=== PATIENT | male | born 1990 | race Caucasian/White ===

== ENCOUNTER → 2018-03-26 | Outpatient (CLI) | payer OTHER ==
--- NOTE | 2018-03-26 16:11 | REP ---
MAXILLOFACIAL CT WITHOUT CONTRAST: HISTORY: Chronic maxillary sinusitis. Minimal mucosal thickening is present in the maxillary, ethmoid , left frontal and left sphenoid sinuses. The remaining sinuses are clear. Mucosal thickening involves the osteomeatal units. The middle and inferior nasal turbinates are partially paradoxical. There is mild deviation of the superior nasal septum to the right. This abuts the right middle nasal turbinate. There is minimal deviation of the inferior nasal septum to the left. A spur is present arising from the left side of the nasal septum. The spurs abuts the left inferior nasal turbinate. The cribriform plate, medial corley of the orbits and optic canals are intact. The carotid canals form a segment of the corley of the sphenoid sinus. The sphenoid sinus septum inserts into the left internal carotid canal wall. IMPRESSION:Sinus mucosal thickening as described above. Electronically Signed by Christian Faye MD 03/26/2018 04:36 P
== END ==
LOC: M RAD 14:59
PROVIDERS: ATTEND Otolaryngology
DX: J32.0 Chronic maxillary sinusitis (principal)

== ENCOUNTER → 2018-03-31 | Outpatient (CLI) | payer OTHER ==
--- NOTE | 2018-03-31 11:51 | REP ---
CT RIGHT SHOULDER: Axial CT images of the right shoulder are performed and sagittal and coronal oblique reconstruction images. The visualized osseous structures are intact. 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 More superiorly, there appears to be a tiny avulsion fraction or the anterior bony glenoid. There also appear to be a few linear anchor tracts in the posterior/inferior bony glenoid. Acromioclavicular joint is well aligned without significant spurring. The remaining osseous structures are intact. The glenohumeral joint is well aligned. There appears to be a mild Hill-Sachs deformity of the superolateral humeral head. Surrounding soft tissue structures appear grossly unremarkable. Visualized right lung is clear. Electronically Signed by Raul Noble MD 03/31/2018 12:46 P
== END ==
LOC: M RAD 10:07
PROVIDERS: ATTEND Physician Assistant
DX: M25.311 Other instability, right shoulder (principal)

== ENCOUNTER 2018-05-18 23:45 | Emergency (ER) | payer OTHER ==
[~2018-05-18] VITALS: Ht 170.2 cm; Wt 124.7 kg
[2018-05-19 00:11] LABS: BASO % 0.1 % (0.0-1.0); EOS # 0.2 10^3/uL (0.0-0.50); EOS % 2.1 % (0.0-3.0); HEMATOCRIT 45.7 % (42.0-52.0); HEMOGLOBIN 15.4 g/dl (13.5-17.5); LYMPH # 2.4 10^3/uL (1.5-6.5); MEAN CORPUSCULAR HEMOGLOBIN 30.9 pg (27.0-33.0); MEAN CORPUSCULAR HGB CONC 33.7 g/dl (32.0-36.5); MEAN CORPUSCULAR VOLUME 91.6 fl (80.0-96.0); MONO # 0.6 10^3/uL (0.0-0.8); MONO % 7.1 % (0.0-5.0); NEUTROPHILS # 5.4 10^3/uL (1.8-7.7); NEUTROPHILS % 62.6 % (36.0-66.0); PLATELET COUNT, AUTOMATED 230 10^3/uL (150-450); RED BLOOD COUNT 4.99 10^6/uL (4.30-6.10); WHITE BLOOD COUNT 8.7 10^3/uL (4.0-10.0)
[2018-05-19 00:43] LABS: ALBUMIN 4.2 GM/DL (3.2-5.2); ALT/SGPT 43 U/L (12-78); BILIRUBIN,DIRECT < 0.1 MG/DL (0.0-0.2); BILIRUBIN,TOTAL 0.3 MG/DL (0.2-1.0); BLOOD UREA NITROGEN 9 MG/DL (7-18); CALCIUM LEVEL 8.6 MG/DL (8.5-10.1); CARBON DIOXIDE LEVEL 25 MEQ/L (21-32); CHLORIDE LEVEL 109 MEQ/L (98-107); CREATININE FOR GFR 1.13 MG/DL (0.70-1.30); ETHYL ALCOHOL (ETHANOL) < 0.003 % (0.000-0.010); GLOMERULAR FILTRATION RATE > 60.0 (>60); GLUCOSE, FASTING 95 MG/DL (70-100); POTASSIUM SERUM 4.7 MEQ/L (3.5-5.1); SODIUM LEVEL 141 MEQ/L (136-145); TOTAL PROTEIN 7.5 GM/DL (6.4-8.2)
--- NOTE | 2018-05-19 03:03 | REPVR ---
EXAM: CT Head Without Contrast EXAM DATE/TIME: 05/18/2018 11:58 PM CLINICAL HISTORY: 28 years old, male; Injury or trauma; Fall; Initial encounter; Concussion / head injury; Consciousness not specified TECHNIQUE: Axial computed tomography images of the head/brain without contrast. All CT scans at this facility use at least one of these dose optimization techniques: automated exposure control; mA and/or kV adjustment per patient size (includes targeted exams where dose is matched to clinical indication); or iterative reconstruction. COMPARISON: No relevant prior studies available. FINDINGS: Brain: There is no evidence for an acute large vessel territorial infarct, intracranial hemorrhage, mass, mass effect, or herniation. The cortical gyration pattern, basal ganglia, thalami, and cerebellum are normal in appearance. Brainstem: Unremarkable. Midline shift: There is no midline shift. Ventricles: Normal. No ventriculomegaly. Bones/joints: Unremarkable. No acute fracture. Sinuses: There is mild polypoid opacification of the left ethmoid sinus. No air-fluid levels are seen in the imaged sinuses. The sinuses were not fully imaged. Mastoid air cells: Visualized mastoid air cells are unremarkable. No mastoid effusion. Soft tissues: Unremarkable. IMPRESSION: No CT evidence for an acute intracranial process. Electronically signed by: Adryan Daniel On 05/19/2018 03:03:21 AM
--- NOTE | 2018-05-19 03:06 | REPVR ---
EXAM: CT Cervical Spine Without Contrast EXAM DATE/TIME: 05/18/2018 11:58 PM CLINICAL HISTORY: 28 years old, male; Injury or trauma; Fall; Initial encounter; Concussion /head injury TECHNIQUE: Axial computed tomography images of the cervical spine without intravenous contrast. All CT scans at this facility use at least one of these dose optimization techniques: automated exposure control; mA and/or kV adjustment per patient size (includes targeted exams where dose is matched to clinical indication); or iterative reconstruction. Coronal and sagittal reformatted images were created and reviewed. COMPARISON: No relevant prior studies available. FINDINGS: Vertebrae: There is a reversal of the normal cervical lordosis. The atlantooccipital alignment is normal. The atlantoaxial alignment is normal. There is no fracture or subluxation. The vertebral body heights are preserved. There is no cervical rib. C2-C3: The disc height is preserved. No disc herniation, spinal canal stenosis, or neural foraminal stenosis is identified. The facet joints are normal. C3-C4: The disc height is preserved. No disc herniation, spinal canal stenosis, or neural foraminal stenosis is identified. The facet joints are normal. C4-C5: The disc height is preserved. No disc herniation, spinal canal stenosis, or neural foraminal stenosis is identified. The facet joints are normal. C5-C6: The disc height is preserved. No disc herniation, spinal canal stenosis, or neural foraminal stenosis is identified. The facet joints are normal. C6-C7: The disc height is preserved. No disc herniation, spinal canal stenosis, or neural foraminal stenosis is identified. The facet joints are normal. C7-T1: The disc height is preserved. No disc herniation, spinal canal stenosis, or neural foraminal stenosis is identified. The facet joints are normal. T1-T2: The disc height is preserved. No disc herniation, spinal canal stenosis, or neural foraminal stenosis is identified. The facet joints are normal. T2-T3: The disc height is preserved. No disc herniation, spinal canal stenosis, or neural foraminal stenosis is identified. The facet joints are normal. Soft tissues: There is nonspecific edema in the subcutaneous tissues in the posterior aspect of the cervical spine. No soft tissue fluid collection is noted. Prevertebral Space: No prevertebral soft tissue swelling is noted. Lungs: The imaged lung apices are clear. IMPRESSION: Reversal of the normal cervical lordosis, but no fracture or subluxation in the cervical spine. Electronically signed by: Adryan Daniel On 05/19/2018 03:06:10 AM
--- NOTE | 2018-05-19 04:01 | REP ---
Clinical: syncope. Comparison: none. Technique: PA and lateral. Findings: The mediastinum and cardiac silhouette are normal. The lung olvera are clear and without acute consolidation, effusion, or pneumothorax. The skeletal structures are intact and normal. Impression: 1. No acute cardiopulmonary process. Electronically Signed by Tariq Noble MD 05/19/2018 03:53 A
[2018-05-19 04:16] VITALS: BP 142/76
--- NOTE | 2018-05-19 08:58 | ECGEPIP ---
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
== END 2018-05-19 04:16 | disposition home or self-care (01) ==
LOC: M ED 23:45
DX: R55 Syncope and collapse (principal); S09.90XA Unspecified injury of head, initial encounter; W10.9XXA Fall (on) (from) unspecified stairs and steps, initial encounter; Y92.9 Unspecified place or not applicable; Y93.01 Activity, walking, marching and hiking; Y99.9 Unspecified external cause status; R93.89 Abnormal findings on diagnostic imaging of other specified body structures; I10 Essential (primary) hypertension; F41.9 Anxiety disorder, unspecified
CPT/HCPCS: 70450; 71046; 72125; 80048; 80076; 84443; 85025; 93005; 93041; 94760; 99285; G0480